=== PATIENT | female | born 1965 ===

== ENCOUNTER 2018-04-13 07:58 | Day surgery (SDC) | payer OTHER ==
[2018-04-12 13:07] VITALS: BMI 24.1
[2018-04-13 08:42] VITALS: TEMP 97.5; O2SAT 100
--- NOTE | 2018-04-13 10:55 | CP.SDSHP ---
Same Day Surgery H & P - History Proposed Procedure: COLONSCOPY Pre-Op Diagnosis: SEE NOTES - Previous Medical/Surgical History Misc: Other Pain: 2.Mild Pain - Allergies Allergies: Allergies No Known Allergies Allergy (Verified 04/12/18 13:07) - Physical Exam General Appearance: N Vital Signs: Vital Signs 04/13/18 08:36 Temperature 97.5 F L Pulse Rate 78 Respiratory 18 Rate Blood Pressure 133/75 O2 Sat by Pulse 100 Oximetry Mental Status: Alert & Oriented x3 Neuro: WNL Heart: WNL Lungs: WNL GI: Other - {Optional Preform as Required} Breast: WNL Abdomen: Other Rectal: Other Integument: WNL : WNL Ortho: Other ENT: WNL - Impression Pt. Evaluated Today:Candidate for Anesthesia & Procedure: Yes - Date & Time Time: 10:55 Short Stay Discharge - Short Stay Discharge Admitting Diagnosis/Reason for Visit: ENCOUNTER FOR SCREENING FOR MALIGNANT NEOPLASM OF Disposition: HOME/ ROUTINE
[2018-04-13] MEDS ORDERED: Propofol 10 mg/ml Inj (20 ML) ONE ×2 (11:02→11:08)
[2018-04-13] MEDS ORDERED: Belladonna-Phenobarbital PO ONE (11:35)
[2018-04-13 12:35] VITALS: BP 108/70; PULSE 59; RESP 15
== END 2018-04-13 12:25 | disposition home or self-care (01) ==
LOC: C.ENDO 07:58
PROVIDERS: ATTEND Specialist
DX: K52.9 Noninfective gastroenteritis and colitis, unspecified (principal); K58.9 Irritable bowel syndrome, unspecified; K64.8 Other hemorrhoids; K64.4 Residual hemorrhoidal skin tags
CPT/HCPCS: 45380; 88305; J2704